=== PATIENT | female | born 1960 | race Caucasian/White ===

== ENCOUNTER 2017-04-01 20:23 | Inpatient (IN) | payer OTHER ==
[~2017-04-01] VITALS: Ht 162.6 cm; Wt 99.8 kg
[2017-04-01 20:53] LABS: BASOPHIL (%) 0.3 % (0-1); EOSINOPHIL (%) 2.5 % (0-5); EOSINOPHIL COUNT 0.2 K/uL (0-0.3); HEMATOCRIT 40.9 % (36.0-46.0); HEMOGLOBIN 13.6 G/DL (11.9-15.5); IMMATURE GRANULOCYTE (%) 0.3 % (0.0-0.7); LYMPHOCYTE (%) 24.3 % (15-42); LYMPHOCYTE COUNT 2.2 K/uL (1.0-2.8); MCH 28.7 PG (29.0-34.0); MCHC 33.3 G/DL (30.0-36.0); MCV 86.3 FL (83-99); MONOCYTE (%) 7.8 % (3-12); MONOCYTE COUNT 0.7 K/uL (0-0.8); NEUTROPHIL (%) 64.8 % (45-76); NEUTROPHIL COUNT 5.8 K/uL (1.8-6.4); PLATELET COUNT 221 K/uL (156-360); RBC DIS.WIDTH-CV 13.2 % (11.8-14.6); RBC DIS.WIDTH-SD 41.2 % (39-53); RED BLOOD COUNT 4.74 M/uL (3.80-5.20); WHITE BLOOD COUNT 8.9 K/uL (4.1-10.2)
[2017-04-01 20:58] LABS: INTER. NORMALIZED RATIO 1.1
[2017-04-01 20:59] LABS: AMYLASE 108 IU/L (1-118); CHLORIDE 105 mEq/L (99-109); POTASSIUM 3.9 mEq/L (3.7-5.4); SODIUM 137 mEq/L (136-147)
[2017-04-01 21:01] LABS: GLUCOSE 204 mg/dL (70-99); PTT 30.1 SEC (25-37)
[2017-04-01 21:04] LABS: SERUM ETHYL ALCOHOL < 10 mg/dL
[2017-04-01 21:05] LABS: CREATININE 1.3 mg/dL (0.6-1.3); GFR ESTIMATE (CALCULATED) 45 mL/min/
[2017-04-01 21:06] LABS: UREA NITROGEN (BUN) 24 mg/dL (9-23)
[2017-04-01 21:08] LABS: LIPASE 84 U/L (1.0-51.0)
[2017-04-01 21:10] LABS: TROP-I INTERPRETATION NEGATIVE; TROPONIN-I < 0.01 ng/mL (0.0-0.30)
[2017-04-01 21:14] LABS: QUANTITATIVE HCG 8.5 MIU/ML
[2017-04-01 22:15] VITALS: BP 129/80
[2017-04-01 22:30] VITALS: BP 145/86
[2017-04-01 22:38] VITALS: BP 129/80
[2017-04-01 22:45] VITALS: BP 137/76
[2017-04-01] MEDS ORDERED: LAMOTRIGINE150 MG PO (22:57)
[2017-04-01] MEDS ORDERED: TOPIRAMATE100 MG PO (22:57)
[2017-04-01] MEDS ORDERED: PROPRANOLOL HCL60 MG PO (22:57)
[2017-04-01] MEDS ORDERED: OMEPRAZOLE20 MG PO (22:57)
[2017-04-01] MEDS ORDERED: JANUMET XR 1001 EACH PO (22:58)
[2017-04-01] MEDS ORDERED: LEVETIRACETAM500 MG PO (22:58)
[2017-04-01 23:00] VITALS: BP 127/77
[2017-04-02] VITALS (23 sets, daily range): BP systolic 111–147; BP diastolic 73–107
[2017-04-02 05:23] LABS: BASOPHIL (%) 0.2 % (0-1); EOSINOPHIL (%) 1.7 % (0-5); EOSINOPHIL COUNT 0.2 K/uL (0-0.3); HEMOGLOBIN 12.6 G/DL (11.9-15.5); IMMATURE GRANULOCYTE (%) 0.4 % (0.0-0.7); LYMPHOCYTE (%) 31.1 % (15-42); LYMPHOCYTE COUNT 2.8 K/uL (1.0-2.8); MCH 27.8 PG (29.0-34.0); MCHC 32.3 G/DL (30.0-36.0); MCV 86.1 FL (83-99); MONOCYTE (%) 10.5 % (3-12); NEUTROPHIL (%) 56.1 % (45-76); NEUTROPHIL COUNT 5.1 K/uL (1.8-6.4); PLATELET COUNT 203 K/uL (156-360); RBC DIS.WIDTH-CV 13.4 % (11.8-14.6); RBC DIS.WIDTH-SD 41.5 % (39-53); RED BLOOD COUNT 4.53 M/uL (3.80-5.20); WHITE BLOOD COUNT 9.1 K/uL (4.1-10.2)
[2017-04-02 05:46] LABS: CHLORIDE 104 MEQ/L (99-109); CREATININE 0.9 MG/DL (0.6-1.3); GFR ESTIMATE (CALCULATED) > 59 mL/min/; GLUCOSE 138 mg/dL (70-99); HDL CHOLESTEROL 38 MG/DL (Desirable>=50); LDL CHOLESTEROL 93 mg/dL (Desirable<100); NON-HDL CHOLESTEROL 153 mg/dL (Desirable<160); POTASSIUM 3.7 MEQ/L (3.7-5.4); SODIUM 138 MEQ/L (136-147); TOTAL CHOLESTEROL 191 mg/dL (Desirable<200); TRIGLYCERIDES 302 MG/DL (Normal: <150); UREA NITROGEN (BUN) 19 mg/dL (9-23)
[2017-04-02 09:05] LABS: HEMOGLOBIN A1c (GLYCOHEMOGLOB) 7.6 % (Below 5.7)
[2017-04-02 09:05] LABS: CREATINE KINASE 275 IU/L (1-294); TOTAL CK 275 IU/L (1-294); TROP-I INTERPRETATION POSITIVE; TROPONIN-I 5.47 ng/mL (0.0-0.30)
[2017-04-02 10:05] LABS: CK-MB 37.1 ng/mL (0.0-4.9); CKMB RELATIVE INDEX 13.5 (0.0-3.9)
[2017-04-02 20:25] LABS: TROP-I INTERPRETATION POSITIVE; TROPONIN-I 4.32 ng/mL (0.0-0.30)
[2017-04-03] VITALS (7 sets, daily range): BP systolic 93–131; BP diastolic 60–89
[2017-04-03 09:08] LABS: CREATINE KINASE 151 IU/L (1-294); TOTAL CK 151 IU/L (1-294)
[2017-04-03 09:16] LABS: TROP-I INTERPRETATION POSITIVE
[2017-04-03 09:28] LABS: CK-MB 13.9 ng/mL (0.0-4.9); CKMB RELATIVE INDEX 9.2 (0.0-3.9)
[2017-04-03] MEDS ORDERED: NITROSTAT0.4 MG SL (13:20)
[2017-04-03] MEDS ORDERED: EFFIENT10 MG PO (13:20)
[2017-04-03] MEDS ORDERED: LOPRESSOR25 MG PO (13:20)
[2017-04-03] MEDS ORDERED: ATORVASTATIN CA80 MG PO (13:20)
[2017-04-03] MEDS ORDERED: PANTOPRAZOLE SO40 MG PO (13:20)
[2017-04-03] MEDS ORDERED: ASPIR-LOW81 MG PO (13:20)
[2017-04-03] MEDS ORDERED: LISINOPRIL2.5 MG PO (13:20)
== END 2017-04-03 14:45 | disposition home or self-care (01) | DRG 247 ==
LOC: EME 20:23 → ENRESERV 20:40 → CATH 20:44 → ENRESERV 21:07 → 4WEST 22:21
PROVIDERS: Emergency Medicine; Internal Medicine Interventional Cardiology
PROC: 4A023N7 Measurement of Cardiac Sampling and Pressure, Left Heart, Percutaneous Approach (ICD-10-PCS; principal; 2017-04-01)
PROC: B2111ZZ Fluoroscopy of Multiple Coronary Arteries using Low Osmolar Contrast (ICD-10-PCS; principal; 2017-04-01)
PROC: B2151ZZ Fluoroscopy of Left Heart using Low Osmolar Contrast (ICD-10-PCS; principal; 2017-04-01)
PROC: 027034Z Dilation of Coronary Artery, One Artery with Drug-eluting Intraluminal Device, Percutaneous Approach (ICD-10-PCS; principal; 2017-04-01)
DX: I21.19 ST elevation (STEMI) myocardial infarction involving other coronary artery of inferior wall (principal); E66.9 Obesity, unspecified; I25.10 Atherosclerotic heart disease of native coronary artery without angina pectoris; I34.0 Nonrheumatic mitral (valve) insufficiency; Z68.37 Body mass index [BMI] 37.0-37.9, adult; G40.909 Epilepsy, unspecified, not intractable, without status epilepticus; E78.5 Hyperlipidemia, unspecified; G43.909 Migraine, unspecified, not intractable, without status migrainosus; E11.9 Type 2 diabetes mellitus without complications; K21.9 Gastro-esophageal reflux disease without esophagitis; E11.65 Type 2 diabetes mellitus with hyperglycemia
CPT/HCPCS: 80048; 80061; 81003; 82150; 82550; 82553; 82948; 83036; 83690; 84484; 84702; 85025; 85347; 85610; 85730; 86850; 86900; 86901; 87641; 93005; 99281; 99285; C1725; C1769; C1874; C1887; G0480; J0153; J1644; J1815; J2250; J3010